=== PATIENT | male | born 1995 | race Caucasian/White ===

== ENCOUNTER 2016-09-09 20:33 | Emergency (ER) | payer SELFPAY ==
[~2016-09-09] VITALS: Ht 177.8 cm; Wt 76.8 kg
[2016-09-09 21:24] LABS: BASOPHILS # (AUTO) 0.09 K/uL (0.00-0.20); BASOPHILS % (AUTO) 1.1 % (0.0-2.0); EOSINOPHILS # (AUTO) 0.07 K/uL (0.00-0.70); EOSINOPHILS % (AUTO) 0.88 % (1.0-6.0); HEMATOCRIT 46.5 % (41-53); HEMOGLOBIN 15.2 g/dL (13.5-17.5); LYMPHOCYTES # (AUTO) 1.2 K/uL (1.0-4.8); LYMPHOCYTES % (AUTO) 15.7 % (22.0-44.0); MEAN CORPUSCULAR HEMOGLOBIN 28.9 pg (26.0-34.0); MEAN CORPUSCULAR HGB CONC 32.7 G/dL (31.0-37.0); MEAN CORPUSCULAR VOLUME 88 fL (80-100); MONOCYTES # (AUTO) 0.4 K/uL (0.1-1.0); MONOCYTES % (AUTO) 5.1 % (2.0-9.0); NEUTROPHILS % (AUTO) 77.2 % (40.0-70.0); PLATELET COUNT (AUTO) 263 K/uL (150-450); RED BLOOD CELL COUNT(AUTO) 5.26 MIL/uL (4.50-5.90); RED CELL DISTRIBUTION WIDTH 13.1 % (11.5-14.5); WHITE BLOOD COUNT (AUTO) 7.8 K/uL (4.5-11.0)
[2016-09-09 21:31] LABS: ANION GAP 10 mmol/L (8-16); CALCIUM, TOTAL 9.8 mg/dL (8.8-10.5); CARBON DIOXIDE 29 mmol/L (22-29); CHLORIDE 102 mmol/L (98-107); GLOMERULAR FILTR. RATE CALC > 60 mL/min (>60); POTASSIUM 4.5 mmol/L (3.5-5.1); SODIUM SERUM 141 mmol/L (136-145); UREA NITROGEN, BLOOD 11 mg/dL (7-18)
[2016-09-09 21:33] LABS: APPEARANCE,URINE CLEAR (CLEAR); GLUCOSE, URINE (UA) NEGATIVE (NEGATIVE); KETONES,URINE 15 mg/dL (NEGATIVE); LEUKOCYTE ESTERASE ,URINE NEGATIVE (NEGATIVE); OCCULT BLOOD,URINE NEGATIVE (NEGATIVE); PH,URINE 7.5 (5.0-8.0); PROTEIN,URINE NEGATIVE (NEGATIVE)
[2016-09-09 21:36] LABS: ALANINE AMINOTRANSFERASE 27 U/L (12-78); ALBUMIN 4.5 g/dL (3.4-5.0); ASPARTATE AMINOTRANSFERASE 21 U/L (15-37); BILIRUBIN,TOTAL 0.7 mg/dL (0.1-1.0); TOTAL PROTEIN, SERUM 8.4 g/dL (6.4-8.2)
[2016-09-09 21:53] LABS: ADD UA MICROSCOPIC NO
[2016-09-09] MEDS ORDERED: METOCLOPRAMIDE HCL 5 MG/ML 2 ML VIAL IVP ONE (23:00)
[2016-09-09] MEDS ORDERED: SODIUM CHLORIDE 0.9% 1,000 ML IV ONE (23:00)
[2016-09-09] MEDS ORDERED: KETOROLAC TROMETHAMINE 30 MG/ML VIAL IVP ONE (23:00)
[2016-09-10 01:28] VITALS: BP 105/65
== END 2016-09-10 01:30 | disposition home or self-care (01) ==
LOC: EMS 20:35
DX: R11.2 Nausea with vomiting, unspecified (principal); R51 Headache
CPT/HCPCS: 36415; 80053; 81003; 83690; 85025; 96361; 96374; 96375; 99285; J1885; J2765; J7030

== ENCOUNTER 2019-08-23 22:18 | Inpatient (IN) | payer MEDICAID ==
[~2019-08-23] VITALS: Ht 177.8 cm; Wt 76.2 kg
[2019-08-23 23:21] LABS: BASOPHILS % (AUTO) 1.9 % (0.0-2.0); EOSINOPHILS % (AUTO) 2.8 % (1.0-6.0); HEMATOCRIT 44.2 % (41-53); HEMOGLOBIN 14.7 g/dL (13.5-17.5); LYMPHOCYTES # (AUTO) 2.1 K/uL (1.0-4.8); LYMPHOCYTES % (AUTO) 39.1 % (22.0-44.0); MEAN CORPUSCULAR HEMOGLOBIN 29.2 pg (26.0-34.0); MEAN CORPUSCULAR HGB CONC 33.3 G/dL (31.0-37.0); MEAN CORPUSCULAR VOLUME 88 fL (80-100); MONOCYTES # (AUTO) 0.3 K/uL (0.1-1.0); MONOCYTES % (AUTO) 5.7 % (2.0-9.0); NEUTROPHILS # (AUTO) 2.7 K/uL (1.8-7.7); NEUTROPHILS % (AUTO) 50.5 % (40.0-70.0); PLATELET COUNT (AUTO) 288 K/uL (150-450); RED BLOOD CELL COUNT(AUTO) 5.05 MIL/uL (4.50-5.90); RED CELL DISTRIBUTION WIDTH 13.5 % (11.5-14.5)
[2019-08-23] MEDS ORDERED: LIDOCAINE 1%/EPI 1:200,000/PF 10 ML VIAL INJ ONE (23:30)
[2019-08-23] MEDS ORDERED: PERTUSS(ACELL),DIPH,TET VAC/PF 0.5 ML VIAL IM ONE (23:30)
[2019-08-23 23:32] LABS: ANION GAP 7 mmol/L (8-16); CALCIUM, TOTAL 9.6 mg/dL (8.8-10.5); CARBON DIOXIDE 33 mmol/L (22-29); CHLORIDE 103 mmol/L (98-107); CREATININE 0.85 mg/dL (0.60-1.30); GLOMERULAR FILTR. RATE CALC > 60 mL/min (>60); GLUCOSE,RANDOM 86 mg/dL (70-110); POTASSIUM 3.8 mmol/L (3.5-5.1); SODIUM SERUM 143 mmol/L (136-145); UREA NITROGEN, BLOOD 5 mg/dL (7-18)
[2019-08-23 23:38] LABS: ALANINE AMINOTRANSFERASE 26 U/L (12-78); ALBUMIN 4.5 g/dL (3.4-5.0); ALKALINE PHOSPHATASE 47 U/L (46-116); ASPARTATE AMINOTRANSFERASE 16 U/L (15-37); BILIRUBIN,TOTAL 0.4 mg/dL (0.1-1.0); TOTAL PROTEIN, SERUM 8.1 g/dL (6.4-8.2)
[2019-08-24] MEDS ORDERED: QUEtiapine FUMARATE 100 MG TABLET PO PRN (00:30)
[2019-08-24] MEDS ORDERED: LORazepam 2 MG TABLET PO PRN (00:30)
[2019-08-24 01:44] VITALS: BP 140/99
[2019-08-24 08:52] VITALS: BP 132/80
[2019-08-24] MEDS ORDERED: ACETAMINOPHEN 325 MG TABLET PO PRN (17:15)
[2019-08-24] MEDS ORDERED: HydrOXYzine PAMOATE 50 MG CAPSULE PO PRN (17:15)
[2019-08-24] MEDS ORDERED: PROMETHAZINE HCL 25 MG TABLET PO PRN (17:15)
[2019-08-24] MEDS ORDERED: MAG HYDROX/AL HYDROX/SIMETH ES 30 ML SUSPENSION UDCUP PO PRN (17:15)
[2019-08-24] MEDS ORDERED: GuaiFENesin/D-METHORPHAN [SUGAR-FREE] 200-20MG/10 ML SYRUP UDCUP PO PRN (17:15)
[2019-08-24] MEDS ORDERED: TUBERCULIN, PURIFIED PROTEIN DERIVATIVE 5 TU/0.1 ML SYRINGE ID ONE (17:15)
[2019-08-24] MEDS ORDERED: LOPERAMIDE HCL 2 MG CAPSULE PO PRN (17:15)
[2019-08-24] MEDS ORDERED: MAGNESIUM HYDROXIDE SUSPENSION 30 ML UDCUP PO PRN (17:15)
[2019-08-24 19:44] VITALS: BP 137/88
[2019-08-24] MEDS ORDERED: FLUoxetine HCL 20 MG CAPSULE PO SCH (21:00)
[2019-08-25] MEDS: ZOLPIDEM TARTRATE 10 MG TABLET PO PRN ×2 (01:48→22:38)
[2019-08-25 02:03] VITALS: BP 112/72
[2019-08-25 08:20] LABS: CHOL/HDL RATIO 2.7 (4.2-7.3); FREE T4 (FREE THYROXINE) 0.91 ng/dL (0.76-1.46); THYROID STIMULATING HORMONE 0.48 uIU/mL (0.36-3.74)
[2019-08-25 08:54] VITALS: BP 126/73
[2019-08-25 09:40] LABS: HEMOGLOBIN A1C 5.2 % (3.8-5.6)
[2019-08-25] MEDS: THIAMINE HCL 100 MG TABLET PO SCH ×2 (09:53→16:14)
[2019-08-25] MEDS: FOLIC ACID 1 MG TABLET PO SCH (09:53)
[2019-08-25] MEDS: MULTIVITAMINS WITH MINERALS, THERAPEUTIC TABLET PO SCH (09:54)
[2019-08-25] MEDS: NALTREXONE HCL 50 MG TABLET PO SCH (09:54)
[2019-08-25 16:50] VITALS: BP 118/77
[2019-08-25] MEDS ORDERED: NALT50TA PO (18:48)
[2019-08-25] MEDS ORDERED: FLUO-191 PO (18:48)
[2019-08-25] MEDS ORDERED: FLUoxetine HCL 20 MG CAPSULE PO SCH (21:00)
[2019-08-26] MEDS: THIAMINE HCL 100 MG TABLET PO SCH (08:09)
[2019-08-26] MEDS: MULTIVITAMINS WITH MINERALS, THERAPEUTIC TABLET PO SCH (08:09)
[2019-08-26] MEDS: FOLIC ACID 1 MG TABLET PO SCH (08:09)
[2019-08-26] MEDS: NALTREXONE HCL 50 MG TABLET PO SCH (08:09)
[2019-08-26 08:26] VITALS: BP 125/85
== END 2019-08-26 13:15 | disposition home or self-care (01) | DRG 885 ==
LOC: EMS 22:18 → 3EI 08-24 00:30
PROVIDERS: ADMIT Psychiatry & Neurology Psychiatry; ATTEND Psychiatry & Neurology Psychiatry
DX: F33.2 Major depressive disorder, recurrent severe without psychotic features (principal); R45.851 Suicidal ideations; F10.129 Alcohol abuse with intoxication, unspecified; F12.90 Cannabis use, unspecified, uncomplicated; F41.9 Anxiety disorder, unspecified; G31.2 Degeneration of nervous system due to alcohol; S41.112A Laceration without foreign body of left upper arm, initial encounter; S51.819A Laceration without foreign body of unspecified forearm, initial encounter; X78.9XXA Intentional self-harm by unspecified sharp object, initial encounter; Y93.89 Activity, other specified; Y92.89 Other specified places as the place of occurrence of the external cause; Y99.8 Other external cause status; Z91.19 Patient's noncompliance with other medical treatment and regimen
CPT/HCPCS: 12002; 83036; 84439; 84443; 86592; 90715; G0480; J3490

== ENCOUNTER 2019-08-30 12:32 | Emergency (ER) | payer MEDICAID ==
[~2019-08-30] VITALS: Ht 177.8 cm; Wt 77.3 kg
[~2019-08-30 12:32] MED LIST: FLUO-191 PO; NALT50TA PO
[2019-08-30 13:22] VITALS: BP 118/67
== END 2019-08-30 13:20 | disposition home or self-care (01) ==
LOC: EMS 12:36
DX: S51.812D Laceration without foreign body of left forearm, subsequent encounter (principal); F32.9 Major depressive disorder, single episode, unspecified; X58.XXXD Exposure to other specified factors, subsequent encounter